=== PATIENT | male | born 1935 | race Caucasian/White ===

== ENCOUNTER 2017-01-20 22:56 | Observation (INO) | payer OTHER ==
[2017-01-20] MEDS ORDERED: NS 1,000 ML IV ONE (23:06)
[2017-01-20] MEDS ORDERED: ceFAZolin 3 GM in D5W 100 ML IV ONE (23:07)
--- NOTE | 2017-01-20 23:11 | EDPHY ---
H & P HPI/ROS: HPI CHIEF COMPLAINT: Large laceration to right leg HISTORY OF PRESENT ILLNESS: This patient very pleasant 81-year-old male significant past medical history for AFib on Pradaxa, pacemaker, depression, hyperlipidemia and GERD he presents emergency room after he had multiple glasses of wine this evening he slipped and fell on hardwood floor with his right leg extending through a glass cabinet. He sustained a rather large posterior right leg wound. EMS evaluated him. At that time they did place a tourniquet on his right upper thigh for possible arterial bleed however this was only in place for 10 minutes. They took it down prior to arrival to the emergency room. Upon arrival to the emergency room the patient is hemodynamically stable no acute distress. Has a large laceration to the posterior right calf. Venous bleeding. The laceration is deep into the muscle belly, 12 cm x 5 cm. Patient distally neurovascular intact with warm extremity warm foot good cap refill. Good DP. Past Medical History: AFib, pacemaker, cardiac ablation, GERD, depression, hyperlipidemia Past Surgical History: Left chest pacemaker, cardiac ablation Social History: Had alcohol this evening, denies illicit drugs or tobacco. Family History: Noncontributory ROS REVIEW OF SYSTEMS: A comprehensive 10 point review of systems is otherwise negative aside from elements mentioned in the history of present illness. Exam Constitutional triage nursing summary reviewed, vital signs reviewed, awake/ alert. Eyes normal conjunctivae and sclera, EOMI, PERRLA. HENT normal inspection, atraumatic, moist mucus membranes, no epistaxis, neck supple/ no meningismus, no raccoon eyes. Respiratory clear to auscultation bilaterally, normal breath sounds, no respiratory distress, no wheezing. Cardiovascular rate normal, regular rhythm, no murmur, no edema, distal pulses normal. Gastrointestinal soft, non-tender, no rebound, no guarding, normal bowel sounds, no distension, no pulsatile mass. Genitourinary no CVA tenderness. Musculoskeletal no midline vertebral tenderness, full range of motion, no calf swelling, no tenderness of extremities, no meningismus, good pulses, neurovascularly intact. Skin pink, warm, & dry, no rash, skin atraumatic. Neurologic RLE: Neurovascularly intact. Good cap refill. Good distal pulse. Warm extremity. No cyanosis. Neurovascularly intact. Good flexion and extension of the ankle and foot. The posterior calf exam there is a large laceration deep into the muscle belly, 12 cm x 5 cm. No foreign bodies visualized. awake, alert and oriented x 3, AAOx3, moves all 4 extremities equally, motor intact, sensory intact, CN II-XII intact, normal cerebellar, normal vision, normal speech. Psychiatric normal mood/affect. Heme/Lymph/Immune no lymphadenopathy. Differential Diagnosis: Includes but is not limited to in a particular order rather large lower extremity laceration, soft tissue injury, degloving injury, laceration of calf muscle including gastrocnemius, possible tendon injury, possible arterial injury Medical Decision Making: Plan for this patient x-ray right lower extremity, 2 large-bore IVs, type and screen, check coags, 1 g Ancef. Consult Trauma surgery Dr. AYANA Singh. Re-evaluation: 1211AM: Patient remains hemodynamically stable no significant bleeding from the calf this time. Dr. Singh with Trauma surgery has been consulted. Plan is to take this patient to the operating room for washout and closure of this large right leg defect. IV antibiotics have been ordered Ancef, also T x-ray has been ordered. He is on Pradaxa there is a reversal agent called Praxibind. At this time I will talk to Dr. Singh about giving him this medication however given that he is not hemorrhaging and he is completely stable we will not reverse his Pradaxa at this time. His last dose was earlier this morning. Will obviously hold his dose tonight. Patient remained stable plan to go to the operating room. Family updated. Patient updated. Leg is still warm, neurovascular intact. 0106AM: Patient remains hemodynamically stable no active bleeding. Reexamine his leg it stool warm good pulse good cap refill. Source: Patient, EMS - Personal History Tetanus Vaccine Date: 2006 - Medical/Surgical History Hx Asthma: Yes Hx Chronic Respiratory Disease: No Hx Diabetes: No Hx Cardiac Disease: Yes Hx Renal Disease: No Hx Cirrhosis: No Hx Alcoholism: Yes Hx HIV/AIDS: No Hx Splenectomy or Spleen Trauma: No Other PMH: Afib, multiple orthopedic surgeries, HTN., seasonal depression, staph infection (under tx), - Social History Smoking Status: Former smoker Constitutional: Initial Vital Signs Temperature (C) 36.3 C 01/20/17 23:15 Heart Rate 76 01/20/17 23:15 Respiratory Rate 20 01/20/17 23:15 Blood Pressure 101/65 01/20/17 23:15 O2 Sat (%) 91 L 01/20/17 23:15 O2 Delivery Mode Room Air Allergies/Adverse Reactions: morphine Allergy (Unknown, Verified 04/28/15 10:53) gabapentin Allergy (Verified 12/26/15 14:23) oxycodone Allergy (Verified 12/26/15 14:23) CAT DANDER Allergy (Severe, Uncoded 08/09/09 12:59) RASH, SWOLLEN ESOPHOGUS,SOB FEATHERS Allergy (Severe, Uncoded 08/09/09 12:59) RASH SWOLLEN ESOPHOGUS, SOB Home Medications: Medication Instructions Recorded Atorvastatin Calcium [Lipitor 40 40 mg PO HS 04/18/15 mg (*)] Dabigatran Etexilate Mesyl 150 mg PO BID 04/18/15 [Pradaxa 150 MG (*)] LORazepam [Ativan (*)] 1 mg PO HS PRN 04/18/15 Lisinopril [Zestril 10 mg (*)] 10 mg PO DAILY 04/18/15 Naproxen Sodium [ANAPROX DS] 550 mg PO BID PRN 04/18/15 Omeprazole Magnesium [Prilosec Otc] 20 mg PO DAILY 04/18/15 Sertraline HCl [Zoloft 100mg (*)] 150 mg PO DAILY 04/18/15 Cephalexin [Keflex (*)] 500 mg PO Q6H #28 cap 01/21/17 Digoxin [Lanoxin 125 mcg (RX)] 125 mcg PO DAILY10 01/21/17 Diltiazem Cd [Cardizem ER Q24hr] 360 mg PO DAILY 01/21/17 Docusate Sodium [Colace 100 MG (*)] 100 mg PO BID #0 cap 01/21/17 Dofetilide [Tikosyn 0.5 MG (*)] 0.5 mg PO BID 01/21/17 Furosemide [Lasix 20 MG (*)] 20 mg PO DAILY 01/21/17 Hydrocodone/APAP 5/325 [[place] 1 - 2 tab PO Q4H PRN #30 tab 01/21/17 5/325 (*)] Potassium Cl [Klor-Con 20 meq (*)] 20 meq PO DAILY 01/21/17 Tamsulosin HCl [Flomax 0.4 MG (*)] 0.4 mg PO DAILY 01/21/17 buPROPion SR [Wellbutrin 100mg SR 50 mg PO DAILY 01/21/17 (*)] Medical Decision Making - Data Points Laboratory Results: Laboratory Results 01/20/17 23:30 01/20/17 23:30 Medications Given: Discontinued Medications Bacitracin (Bacitracin Ointment Tube) Confirm Administered Dose 14.2 manav TP .STK -MED ONE Stop: 01/21/17 03:40 Last Admin: 01/21/17 04:59 Dose: Not Given Bupivacaine HCl (Sensorcaine 0.5% Vial) Confirm Administered Dose 30 ml .ROUTE .STK-MED ONE Stop: 01/21/17 03:40 Last Admin: 01/21/17 04:59 Dose: Not Given Cefazolin Sodium (Ancef) Confirm Administered Dose 1 gm .ROUTE .STK-MED ONE Stop: 01/21/17 04:22 Last Admin: 01/21/17 04:41 Dose: 1 gm Cefazolin Sodium (Ancef) Confirm Administered Dose 1 gm .ROUTE .STK-MED ONE Stop: 01/21/17 04:22 Last Admin: 01/21/17 04:41 Dose: 1 gm Docusate Sodium (Colace) 100 mg PO BID LOIS Stop: 07/20/17 12:44 Last Admin: 01/21/17 13:25 Dose: 100 mg Fentanyl (Sublimaze) 25 - 50 mcg IVP Q5M PRN PRN Reason: PACU, Immediate Moderate Pain Stop: 01/21/17 06:04 Last Admin: 01/21/17 05:23 Dose: 50 mcg Hydromorphone HCl (Dilaudid) 0.2 - 0.4 mg IVP Q4 PRN PRN Reason: Pain, Severe Unable to Take PO Stop: 01/31/17 05:22 Last Admin: 01/21/17 11:01 Dose: 0.2 mg Sodium Chloride (Ns) 1,000 mls @ 0 mls/hr IV ONCE ONE; Wide Open PRN Reason: Protocol Stop: 01/20/17 23:07 Last Admin: 01/20/17 23:29 Dose: 1,000 mls Cefazolin Sodium 3 gm/ (Dextrose) 100 mls @ 200 mls/hr IV EDNOW ONE PRN Reason: Protocol Stop: 01/20/17 23:36 Last Admin: 01/20/17 23:54 Dose: 100 mls Tranexamic Acid 1,000 mg/ (Sodium Chloride) 110 mls @ 660 mls/hr IV EDNOW ONE Stop: 01/21/17 00:12 Last Admin: 01/21/17 00:50 Dose: 110 mls Cefazolin Sodium/Dextrose (Ancef 1 Gm (Premix)) 50 mls @ 200 mls/hr IV Q8 LOIS PRN Reason: Protocol Stop: 01/21/17 22:14 Last Admin: 01/21/17 13:03 Dose: 50 mls Potassium Chloride/Dextrose/Sod Cl (D5w 1/2 Ns W/ 20 Kcl/L) 1,000 mls @ 75 mls/ hr IV CONT LOIS Stop: 07/20/17 05:29 Last Admin: 01/21/17 06:12 Dose: 1,000 mls Polyethylene Glycol (Miralax) 17 gm PO ONCE ONE Stop: 01/21/17 12:32 Last Admin: 01/21/17 13:03 Dose: 17 gm Thrombin (Thrombin-Jmi) Confirm Administered Dose 20,000 unit TP .STK-MED ONE Stop: 01/21/17 04:23 Last Admin: 01/21/17 04:40 Dose: 20,000 unit Departure - Departure Disposition: [facility] Inpatient Acute Clinical Impression: Laceration of calf Qualifiers: Encounter type: initial encounter Laterality: right Qualified Code(s): S81.811A - Laceration without foreign body, right lower leg, initial encounter Condition: Good
[2017-01-20 23:39] LABS: % IMMATURE GRANULYOCYTES 0.3 % (0.0-1.1); ABSOLUTE IMMATURE GRANULOCYTES 0.02 10^3/uL (0.00-0.10); ADD DIFF? NO; ADD MORPH? NO; ADD SCAN? NO; ATYPICAL LYMPHOCYTE FLAG 20 (0-99); FRAGMENT RBC FLAG 0 (0-99); HEMATOCRIT 38.4 % (40.0-51.0); HEMOGLOBIN 12.9 g/dL (13.7-17.5); LEFT SHIFT FLG 0 (0-99); LIPEMIA HEMOLYSIS FLAG 80 (0-99); MEAN CELL HEMOGLOBIN 35.1 pg (27.9-34.1); MEAN CELL HEMOGLOBIN CONCENTR. 33.6 g/dL (32.4-36.7); MEAN CELL VOLUME 104.3 fL (81.5-99.8); MEAN PLATELET VOLUME 9.2 fL (8.7-11.7); PLATELET CLUMPS FLAG 0 (0-99); PLATELET COUNT 182 10^3/uL (150-400); RED BLOOD CELL COUNT 3.68 10^6/uL (4.40-6.38); RED CELL DISTRIBUTION WIDTH 12.7 % (11.5-15.2)
[2017-01-20 23:49] LABS: APTT 31.4 SEC (23.0-38.0); INR 1.15 (0.83-1.16); PROTIME(PATIENT) 14.7 SEC (12.0-15.0)
[2017-01-20 23:53] LABS: ANION GAP 14 mEq/L (8-16); CALCIUM 9.1 mg/dL (8.5-10.4); CARBON DIOXIDE 20 mEq/l (22-31); CHLORIDE 105 mEq/L (97-110); CREATININE 0.8 mg/dL (0.7-1.3); GLOMERULAR FILTRATION RATE > 60; GLUCOSE 84 mg/dL (70-100); POTASSIUM 4.4 mEq/L (3.5-5.2); SODIUM 139 mEq/L (134-144)
[2017-01-21] MEDS ORDERED: TRANEXAMIC ACID 1,000 MG in NS 100 ML IV ONE (00:03)
[2017-01-21 01:47] LABS: % IMMATURE GRANULYOCYTES 0.2 % (0.0-1.1); ABSOLUTE IMMATURE GRANULOCYTES 0.01 10^3/uL (0.00-0.10); ADD DIFF? NO; ADD MORPH? NO; ADD SCAN? NO; ATYPICAL LYMPHOCYTE FLAG 10 (0-99); FRAGMENT RBC FLAG 0 (0-99); HEMATOCRIT 35.7 % (40.0-51.0); HEMOGLOBIN 11.8 g/dL (13.7-17.5); LEFT SHIFT FLG 0 (0-99); LIPEMIA HEMOLYSIS FLAG 80 (0-99); MEAN CELL HEMOGLOBIN 34.2 pg (27.9-34.1); MEAN CELL HEMOGLOBIN CONCENTR. 33.1 g/dL (32.4-36.7); MEAN CELL VOLUME 103.5 fL (81.5-99.8); MEAN PLATELET VOLUME 9.1 fL (8.7-11.7); PLATELET CLUMPS FLAG 0 (0-99); PLATELET COUNT 176 10^3/uL (150-400); RED BLOOD CELL COUNT 3.45 10^6/uL (4.40-6.38); RED CELL DISTRIBUTION WIDTH 12.7 % (11.5-15.2)
--- NOTE | 2017-01-21 02:03 | GHP ---
[f rep st] PREOP HISTORY AND PHYSICAL DATE OF ADMISSION: 01/21/2017 HISTORY OF PRESENTING ILLNESS: This is an 81-year-old male who slipped and his foot went through [facility] pane, sustaining a large laceration on the back of his right calf, down into the gastroc mus bobo. It was bleeding profusely initially. He is on Pradaxa for atrial fibrillation. He was tamiko t in initially with EMS with a tourniquet in place, but he has been quite stable. He is admitted at this time for clean out and repair of his right calf laceration. He also wants us to fix his umbil ical hernia, but I doubt that we will do that tonight, since he is only 15 hours off his Pradaxa. PAST MEDICAL HISTORY: Includes atrial fibrillation, pacemaker placement, cardiac ablation. He has some GERD and hyperlipidemia. He also has some depression. REVIEW OF SYSTEMS: Reveals no other major medical problems on a full 10-point review of systems. H e denies any present cardiac symptoms. SOCIAL HISTORY: He does not smoke. FAMILY HISTORY: Noncontributory. PHYSICAL EXAMINATION: GENERAL: An alert 81-year-old male, in no acute distress. HEENT: No icteru s. No adenopathy. No oral lesions. His pupils are normal. NECK: Supple. No thyromegaly. CHEST : Clear to auscultation and percussion. CARDIAC: Regular rhythm without murmurs. ABDOMEN: Soft and nontender. He has a small reducible umbilical hernia. GENITALIA: Normal. EXTREMITIES: Revea l full range of motion. Full pulses. On the posterior aspect of his right calf, he has a large 15 cm laceration, down into the gastrocnemius muscle, which is bleeding significantly but that is well controlled with a pressure dressing. SKIN: Intact with no major lesions except for the laceration. NEUROLOGIC: Physiologic. IMPRESSION: Significant laceration of the right calf. PLAN: Laceration washout and repair. Risks and options have been fully discussed, and he wishes to proceed. We will need to let the Pradaxa wear off a little bit longer, but he has not had any Prad axa for 16 hours. /[id number]/MODL
--- NOTE | 2017-01-21 03:34 | PDANEPAE ---
ANE History of Present Illness 81 yo M here with laceration to R leg for I+D and wound closure ANE Past Medical History - Cardiovascular History Hx Hypertension: Yes Hx Arrhythmias: Yes Hx CHF / Valvular Disease: Yes - Pulmonary History Hx Oxygen in Use at Home: Yes O2 in Use at Home (L/minute): 2 Hx Sleep Apnea: Yes - Endocrine History Hx Diabetes: No - Chronic Pain History Chronic Pain: No ANE Review of Systems - Exercise capacity Exercise capacity: >=4 METS ANE Patient History - Allergies Allergies/Adverse Reactions: morphine Allergy (Unknown, Verified 04/28/15 10:53) gabapentin Allergy (Verified 12/26/15 14:23) oxycodone Allergy (Verified 12/26/15 14:23) CAT DANDER Allergy (Severe, Uncoded 08/09/09 12:59) RASH, SWOLLEN ESOPHOGUS,SOB FEATHERS Allergy (Severe, Uncoded 08/09/09 12:59) RASH SWOLLEN ESOPHOGUS, SOB - Home Medications Home medications: home medication list seen and reviewed Home Medications: Atorvastatin Calcium [Lipitor 40 mg (*)] 40 mg PO DAILY 04/18/15 [Last Taken Unknown] Dabigatran Etexilate Mesyl [Pradaxa 150 MG (*)] 150 mg PO BID 04/18/15 [Last Taken Unknown] Diltiazem HCl [Diltiazem ER] 240 mg PO DAILY 04/18/15 [Last Taken Unknown] Dofetilide [Tikosyn] 500 mcg PO BID 04/18/15 [Last Taken 04/18/15] LORazepam [Ativan (*)] 1 mg PO HS PRN 04/18/15 [Last Taken Unknown] Lisinopril [Zestril 10 mg (*)] 10 mg PO DAILY 04/18/15 [Last Taken Unknown] Naproxen Sodium [ANAPROX DS] 550 mg PO BID 04/18/15 [Last Taken Unknown] Omeprazole Magnesium [Prilosec Otc] 20 mg PO DAILY 04/18/15 [Last Taken Unknown] Sertraline HCl [Zoloft 100mg (*)] 100 mg PO DAILY 04/18/15 [Last Taken Unknown] Tamsulosin HCl 0.4 mg PO DAILY 04/18/15 [Last Taken Unknown] Zaleplon [Sonata] 10 mg PO HS 04/18/15 [Last Taken Unknown] Acyclovir [Zovirax 400 mg (RX)] 400 mg PO BID 04/28/15 [Last Taken Unknown] Digoxin 12/26/15 [Last Taken Unknown] Furosemide [Lasix] 12/26/15 [Last Taken Unknown] Warfarin Sodium [Coumadin] 12/26/15 [Last Taken Unknown] - NPO status NPO Status: no food or drink >8 hours NPO Since - Liquids (Date): 01/20/17 NPO Since - Liquids (Time): 19:00 NPO Since - Solids (Date): 01/20/17 NPO Since - Solids (Time): 19:00 - Anes Hx Anes Hx: no prior problems - Smoking Hx Smoking Status: Former smoker - Alcohol Use Alcohol Use: Heavy - Family Anes Hx Family Anes Hx: none ANE Labs/Vital Signs - Labs Result Diagrams: 01/21/17 01:40 01/20/17 23:30 - Vital Signs Blood Pressure: 110/64 Heart Rate: 68 Respiratory Rate: 16 O2 Sat (%): 96 Height: 172.72 cm Weight: 72.575 kg ANE Physical Exam - Airway Neck exam: FROM, increased neck circumference, short neck Mallampati Score: Class 2 Mouth exam: normal dental/mouth exam - Pulmonary Pulmonary: no respiratory distress, clear to auscultation - Cardiovascular Cardiovascular: regular rate and rhythym, no murmur, rub, or gallop - ASA Status ASA Status: III, E ANE Anesthesia Plan Anesthesia Plan: general endotracheal anesthesia
[2017-01-21] MEDS ORDERED: BUPIVACAINE 0.5% 30 ML SDV ONE (03:39)
[2017-01-21] MEDS ORDERED: BACITRACIN ZINC 14.2 GM OINTTUBE TP ONE (03:39)
[2017-01-21] MEDS ORDERED: fentaNYL 100 MCG/2 ML INJ ONE ×2 (03:40→05:05)
[2017-01-21] MEDS ORDERED: PROPOFOL 200 MG/20 ML VIAL ONE ×2 (03:41)
[2017-01-21] MEDS ORDERED: ROCURONIUM 50 MG/5 ML VIAL ONE (03:43)
[2017-01-21] MEDS ORDERED: LIDOCAINE 2% 100 MG/5 ML SYR ONE (03:43)
[2017-01-21] MEDS ORDERED: epHEDrine SULFATE 10 MG/ML SYR ONE (04:17)
[2017-01-21] MEDS ORDERED: ceFAZolin 1 GM VIAL ONE ×2 (04:21)
[2017-01-21] MEDS ORDERED: THROMBIN (BOVINE) 20,000 UNIT SPRAY TP ONE (04:22)
--- NOTE | 2017-01-21 04:52 | SOAPPROG ---
SOAP Progress Note Assessment/Plan: Assessment: hct 35/ coags ok/ still bleeding risks and options fully discussed Plan:to OR for debridement and repair 01/21/17 04:51 Objective: Vital Signs Temp Pulse Resp BP Pulse Ox 36.4 C 68 16 110/64 96 01/21/17 02:40 01/21/17 03:36 01/21/17 03:36 01/21/17 03:36 01/21/17 03:36 Laboratory Results 01/21/17 01:40 01/19/17 01/20/17 01/21/17 05:59 05:59 05:59 Intake Total 1000 Balance 1000 PT 14.7 SEC (12.0-15.0) 01/20/17 23:30 INR 1.15 (0.83-1.16) 01/20/17 23:30 ICD10 Worksheet Patient Problems: Problems Problem Status Onset Laceration of calf Acute Atrial fibrillation, rapid Acute Bursitis Acute Cellulitis Acute Hypertension Acute [place]OR[place] on CPAP Acute Pulmonary hypertension Acute SSS (sick sinus syndrome) Acute Symptomatic bradycardia Acute
--- NOTE | 2017-01-21 04:55 | POSTOPPROG ---
Post Op Note Date of Operation: 01/21/17 Surgeon: Frankie Singh Anesthesiologist: vera Anesthesia: GET(General Endotracheal) Pre-op Diagnosis: rt calf deep laceration Post-op Diagnosis: same Indication: bleeding, open wound Procedure: wound debridement and repair of lacerated gastroc and soleus muscles , ligat Findings: deep lac down to bone thru gastrocnemius and soleus Inf/Abcess present in the surg proc area at time of surgery?: No Depth: Deep Incisional (Fascial) EBL: Minimal Complications: none
[2017-01-21] MEDS ORDERED: HYDROmorphONE/DILAUDID 1 MG/ML SYR IVP PRN (05:04)
[2017-01-21] MEDS ORDERED: ONDANSETRON 4 MG/2 ML VIAL IVP PRN ×2 (05:04→05:23)
[2017-01-21] MEDS ORDERED: NALOXONE HCL 0.4 MG/ML INJ IVP PRN (05:04)
--- NOTE | 2017-01-21 05:06 | POSTANESTH ---
Post Anesthetic Evaluation Cardiovascular Status: Normal, Stable, Similar to Pre-Op Cond Respiratory Status: Normal, Stable, Similar to Pre-op Cond. Level of Consciousness/Mental Status: Can Participate in Eval, Mildly Sleepy, Arousable Pain Control: Adequate, Prn Tx Ordered Nausea/Vomiting Control: Adequate, Prn Tx Ordered Complications Possibly Related to Anesthesia: None Noted
[2017-01-21] MEDS: fentaNYL 100 MCG/2 ML INJ IVP PRN ×2 (05:08→05:23)
[2017-01-21] MEDS ORDERED: OXYCODONE/APAP 5/325 TAB PO PRN (05:23)
[2017-01-21] MEDS ORDERED: D5W 1/2 NS W/ 20 KCl/L 1,000 ML IV SCH (05:30)
[2017-01-21] MEDS: HYDROmorphONE/DILAUDID 1 MG/ML SYR IVP PRN ×2 (06:13→11:01)
[2017-01-21 08:46] LABS: % IMMATURE GRANULYOCYTES 0.6 % (0.0-1.1); ABSOLUTE IMMATURE GRANULOCYTES 0.08 10^3/uL (0.00-0.10); ADD DIFF? NO; ADD MORPH? NO; ADD SCAN? NO; ATYPICAL LYMPHOCYTE FLAG 0 (0-99); FRAGMENT RBC FLAG 0 (0-99); HEMOGLOBIN 11.7 g/dL (13.7-17.5); LEFT SHIFT FLG 10 (0-99); LIPEMIA HEMOLYSIS FLAG 80 (0-99); MEAN CELL HEMOGLOBIN 34.6 pg (27.9-34.1); MEAN CELL HEMOGLOBIN CONCENTR. 33.4 g/dL (32.4-36.7); MEAN CELL VOLUME 103.6 fL (81.5-99.8); MEAN PLATELET VOLUME 9.2 fL (8.7-11.7); PLATELET CLUMPS FLAG 0 (0-99); PLATELET COUNT 175 10^3/uL (150-400); RED BLOOD CELL COUNT 3.38 10^6/uL (4.40-6.38); RED CELL DISTRIBUTION WIDTH 12.8 % (11.5-15.2)
[2017-01-21 12:02] VITALS: BP 126/74; PULSE 83; RESP 17; TEMP 98; O2SAT 97
[2017-01-21] MEDS ORDERED: POLYETHYLENE GLYCOL 3350 17 GM PKT PO ONE (12:31)
[2017-01-21] MEDS ORDERED: DOCUSATE SODIUM 100 MG CAP PO SCH (12:45)
--- NOTE | 2017-02-10 07:11 | GOP ---
[f rep st] OPERATIVE REPORT DATE OF OPERATION: 01/21/2017 SURGEON: Frankie Singh MD INDUSTRIAL STAFF NURSE: None. ANESTHESIOLOGIST: Dr. Villatoro. PREOPERATIVE DIAGNOSIS: Right calf deep laceration. POSTOPERATIVE DIAGNOSIS: Right calf deep laceration. PROCEDURE PERFORMED: Wound debridement and repair of lacerated gastrocnemius and soleus muscles with ligation of muscular bleeders. FINDINGS: Patient was found to have a deep laceration of the posterior right calf down to the bone through the gastrocnemius and soleus muscle. DESCRIPTION OF PROCEDURE: The patient was taken to the operating room where he received satisfactory general endotracheal anesthesia by Dr. Villatoro, placed in the prone position, prepped and draped in usual sterile fashion. Laceration involved was debrided sharply. Hemostasis was obtained with electrocautery. A 3-0 Vicryl suture ligature was used for bleeding muscular branch of the posterior tibial artery. The soleus muscles approximated with interrupted 0 Vicryl sutures. The gastroc muscles approximated with interrupted 0 PDS sutures. The wound was irrigated. The subcu was then closed with a running 2- 0 Vicryl suture, the skin with skin srinivas. The wound was dressed with a bulky dressing and Oneil wrap. He tolerated the procedure well. The wound was infiltrated with 0.5% Marcaine. He was taken to the recovery room in good condition. There were no complications. /[id number]/MODL MTDD
== END 2017-01-21 14:43 | disposition home or self-care (01) ==
LOC: EDUNIT# → INTOOBSV 01-21 00:06 → F1N 01-21 01:29
PROVIDERS: ADMIT Surgery; ATTEND Surgery
PROC: 0KQS0ZZ Repair Right Lower Leg Muscle, Open Approach (ICD-10-PCS; principal; 2017-01-21 03:54)
CPT/HCPCS: 13121; 13122; 20103; 73590; 96365; 96374; 96375; 97162; 97166; 99285; G0378; G8978; G8979; G8987; G8988; J0690; J1170; J2001; J2704; J3010

== ENCOUNTER 2017-03-05 05:38 | Day surgery (SDC) | payer OTHER ==
--- NOTE | 2017-03-04 14:13 | GHP ---
[f rep st] PREOP HISTORY AND PHYSICAL DATE OF ADMISSION: 03/05/2017 CHIEF COMPLAINT: 1. Umbilical hernia. 2. Followup status post wound debridement of right lacerated gastrocnemius and soleus muscle on 01/21/2017. HISTORY OF PRESENT ILLNESS: The patient is an 81-year-old male who underwent wound debridement and repair of the lacerated gastrocnemius and soleus muscles of the right calf on 01/21/2017 after falling into a china cabinet while taking Pradaxa. Physical exam was normal during postoperative visit on 01/27/2017, except for some mild serosanguineous drainage from the site, which has resolved at this time. He has no other complaints related to his right calf wound. The patient wonders if he may have a repair of an umbilical hernia that Dr. Singh noticed on physical exam while he was in the hospital for his leg. He states he has a past surgical history that is significant for an inguinal hernia repair, and for trouble with urinary catheters. PAST MEDICAL HISTORY: Allergic rhinitis, arthritis, atrial fibrillation, cardiomyopathy, cataract, congestive heart failure, depression, fall risk, hyperlipidemia, hypertension, pulmonary hypertension, septic arthritis at the right knee, septic bursitis at the elbow, shingles, sick sinus syndrome. PAST SURGICAL HISTORY: Cardiac ablation, cataract, excision of left olecranon bursa, inguinal hernia repair, knee replacement, pacemaker placement, uvulectomy. MEDICATIONS: Digoxin, diltiazem, Lasix, Lipitor, lisinopril, lorazepam, multivitamin, naproxen, omeprazole, Pradaxa, tamsulosin, trazodone, Tylenol, Wellbutrin, Zoloft. ALLERGIES: Oxycodone, unknown reaction. FAMILY MEDICAL HISTORY: Hypertension, prostate cancer. SOCIAL HISTORY: The patient is former tobacco smoker. He does not use alcohol. PHYSICAL EXAMINATION: GENERAL: Well-groomed, pleasant, nontoxic-appearing male. SKIN: Warm and dry. RESPIRATORY: No increased work of breathing. ABDOMEN: Positive findings include a palpable, small, soft, reducible umbilical hernia defect, positive, small, soft, reducible ventral hernia defect 2 cm superior in left umbilicus. Otherwise, negative for distention, tenderness , rigidity, guarding. EXTREMITIES: Adequate peripheral perfusion, negative for peripheral edema. Right lower extremity debridement and muscle laceration repair. Wound is healing well, closed completely without evidence, including no signs or symptoms of infection. MUSCULOSKELETAL: Ambulates well independently, normal gait. Full range of motion in right lower extremity, 5/5 strength in the right lower extremity. NEURO: Alert, oriented. PSYCH: Mood and affect are normal. ASSESSMENT: Ventral hernia, umbilical hernia, status post right calf wound debridement and muscle repair. PLAN: Patient's right lower extremity wound is healing well without evidence of deep nerve damage. It was explained to him that the superficial sensory nerve damage would resolve in this part in about 6 months' time, but may never fully resolve. In regard to his chief complaint of hernias, patient was advised that he has 2 abdominal hernias, 1 in his umbilicus, and the other just appearing left. I explained to him both are small, and since they are not symptomatic he should have them repaired at his convenience. We discussed the usual course of their repairs, including option for general anesthesia versus sedation with local, the general course of recovery, and the associated risks, including bleeding, infection, and recurrence of the hernia. I explained the indications for the use of mesh, and the benefits as indicated, as well as the benefit of having the repair under general anesthesia. Patient understood all the above, and wished to proceed with the scheduling of an open repair with possible mesh placement under general anesthesia. /[id number]/MODL MTDD
[2017-03-05] MEDS ORDERED: ceFAZolin 2 GM/DEXTROSE 100 ML IV ONE (06:17)
[2017-03-05] MEDS ORDERED: LIDOCAINE 1% 2 ML INJ ID PRN (06:18)
[2017-03-05] MEDS ORDERED: LR 1,000 ML IV ONE (06:18)
[2017-03-05 06:29] VITALS: RESP 16
--- NOTE | 2017-03-05 06:59 | PDANEPAE ---
ANE History of Present Illness here for umbilical hernia repair ANE Past Medical History - Cardiovascular History Hx Hypertension: Yes Hx Arrhythmias: Yes Hx Chest Pain: No Hx Coronary Artery / Peripheral Vascular Disease: No Hx CHF / Valvular Disease: Yes Hx Palpitations: No - Pulmonary History Hx COPD: No Hx Asthma/Reactive Airway Disease: No Hx Recent Upper Respiratory Infection: Yes Hx Oxygen in Use at Home: Yes O2 in Use at Home (L/minute): 4 L Hx Sleep Apnea: Yes Sleep Apnea Screening Result - Last Documented: Positive Pulmonary History Comment: Has concentrator at [facility] where he has signficant SOB. Does not use O2 in [place] - Neurologic History Hx Cerebrovascular Accident: No Hx Seizures: No Hx Dementia: No - Endocrine History Hx Diabetes: No Hypothyroid: No Hyperthyroid: No - Renal History Hx Renal Disorders: Yes - Liver History Hx Hepatic Disorders: No - Neurological & Psychiatric Hx Hx Neurological and Psychiatric Disorders: No - Cancer History Hx Cancer: No - Congenital Disorder History Hx Congenital Disorders: No - GI History Hx Gastrointestinal Disorders: No - Other Health History Other Health History: Carpal tunnel right - Chronic Pain History Chronic Pain: No - Surgical History Prior Surgeries: Cardiac Ablation 2017. I& D abcess right arm ANE Review of Systems Review of Systems: - Exercise capacity Exercise capacity: >=4 METS METS (RN): 4 METS - Pacemaker Pacemaker Congressional Assistant: [employer] Pacemaker Model: GASTON RDZ seratrox s45 Date Pacemaker Last Checked: 02/25/17 ANE Patient History - Allergies Allergies/Adverse Reactions: oxycodone Allergy (Verified 03/05/17 06:20) nausea CAT DANDER Allergy (Severe, Uncoded 08/09/09 12:59) RASH, SWOLLEN ESOPHOGUS,SOB FEATHERS Allergy (Severe, Uncoded 08/09/09 12:59) RASH SWOLLEN ESOPHOGUS, SOB - Home Medications Home medications: home medication list seen and reviewed Home Medications: Atorvastatin Calcium [Lipitor 40 mg (*)] 40 mg PO HS 04/18/15 [Last Taken 18:00] Dabigatran Etexilate Mesyl [Pradaxa 150 MG (*)] 150 mg PO BID 04/18/15 [Last Taken 02/22/17] LORazepam [Ativan (*)] 1 mg PO HS PRN 04/18/15 [Last Taken 03/04/17 22:00] Lisinopril [Zestril 10 mg (*)] 10 mg PO DAILY AT 6PM 04/18/15 [Last Taken 18:00] Naproxen Sodium [ANAPROX DS] 550 mg PO BID PRN 04/18/15 [Last Taken 02/22/17] Omeprazole Magnesium [Prilosec Otc] 20 mg PO DAILY AT 6AM 04/18/15 [Last Taken 03/05/17 05:10] Sertraline HCl [Zoloft 100mg (*)] 150 mg PO DAILY AT 10AM 04/18/15 [Last Taken 03/04/17 10:00] Digoxin [Lanoxin 125 mcg (RX)] 125 mcg PO DAILY10 01/21/17 [Last Taken 03/05/17 05:10] Diltiazem Cd [Cardizem ER Q24hr] 360 mg PO DAILY06 01/21/17 [Last Taken 05:10] Furosemide [Lasix 20 MG (*)] 20 mg PO MWF 01/21/17 [Last Taken 03/02/17] Potassium Cl [Klor-Con 20 meq (*)] 20 meq PO DAILY 01/21/17 [Last Taken 07:00] Tamsulosin HCl [Flomax 0.4 MG (*)] 0.4 mg PO DAILY AT 10AM 01/21/17 [Last Taken 03/04/17 10:00] buPROPion SR [Wellbutrin 100mg SR (*)] 50 mg PO DAILY 01/21/17 [Last Taken 03/04 18:00] - NPO status NPO Status: no food or drink >8 hours NPO Since - Liquids (Date): 03/04/17 NPO Since - Liquids (Time): 22:00 NPO Since - Solids (Date): 03/04/17 NPO Since - Solids (Time): 18:00 - Smoking Hx Smoking Status: Former smoker - Family Anes Hx Family Hx Anesthesia Complications: none ANE Labs/Vital Signs - Vital Signs Blood Pressure: 135/85 Heart Rate: 70 Respiratory Rate: 16 O2 Sat (%): 95 Height: 172.72 cm Weight: 74.389 kg ANE Physical Exam - Airway Neck exam: FROM Mallampati Score: Class 1 Mouth exam: normal dental/mouth exam - Pulmonary Pulmonary: no respiratory distress - Cardiovascular Cardiovascular: regular rate and rhythym - ASA Status ASA Status: II ANE Anesthesia Plan Anesthesia Plan: general endotracheal anesthesia
--- NOTE | 2017-03-05 07:06 | PDHPUP ---
History & Physical Update H&P update statement: This history and physical update is based on an assessment of the patient which was completed after admission or registration (within 24 hours), but prior to the surgery/procedure. H&P update: H&P reviewed & patient examined, no change in patient's condition since H&P completed
[2017-03-05] MEDS ORDERED: BUPIVACAINE 0.5% 30 ML SDV ONE (07:07)
[2017-03-05] MEDS ORDERED: fentaNYL 100 MCG/2 ML INJ ONE ×2 (07:09→07:43)
[2017-03-05] MEDS ORDERED: PROPOFOL/EMULSION 500 MG/50 ML BOTTLE IV ONE (07:10)
[2017-03-05] MEDS ORDERED: ONDANSETRON 4 MG/2 ML VIAL IVP PRN ×2 (07:33→07:34)
[2017-03-05] MEDS ORDERED: NALOXONE HCL 0.4 MG/ML INJ IVP PRN ×4 (07:33→09:58)
[2017-03-05] MEDS ORDERED: ALBUTEROL 3 ML DEYVIAL IH PRN ×3 (07:33→09:58)
[2017-03-05] MEDS ORDERED: HYDROCODONE/APAP 5/325 TAB PO PRN ×3 (07:33→09:58)
[2017-03-05] MEDS ORDERED: fentaNYL 100 MCG/2 ML INJ IVP PRN ×3 (07:33→09:58)
[2017-03-05] MEDS ORDERED: DEXAMETHASONE 4 MG/ML VIAL IVP PRN ×2 (07:33→07:34)
[2017-03-05] MEDS ORDERED: HYDROmorphONE/DILAUDID 1 MG/ML INJ IVP PRN (07:34)
[2017-03-05] MEDS ORDERED: PHENYLEPHRINE HCL 100 MCG/ML SYR ONE (08:00)
[2017-03-05] MEDS ORDERED: SUGAMMADEX SODIUM 200 MG/2 ML VIAL IVP ONE (08:00)
--- NOTE | 2017-03-05 08:24 | POSTOPPROG ---
Post Op Note Date of Operation: 03/05/17 Surgeon: Frankie Singh Superintendent Communications: Laila Neal Anesthesiologist: Stefani Anesthesia: GET(General Endotracheal) Pre-op Diagnosis: Incisional umbilical hernia Post-op Diagnosis: same Indication: enlarging hernia Procedure: open incisional hernia repair with mesh Inf/Abcess present in the surg proc area at time of surgery?: No Depth: Deep Incisional (Fascial) EBL: Minimal
[2017-03-05 09:46] VITALS: PULSE 63; TEMP 98.1; O2SAT 93
[2017-03-05] MEDS ORDERED: LR 500 ML IV PRN (09:58)
[2017-03-05 11:40] VITALS: BP 116/63
--- NOTE | 2017-03-05 16:10 | POSTANESTH ---
Post Anesthetic Evaluation Cardiovascular Status: Normal, Stable Respiratory Status: Normal, Stable Level of Consciousness/Mental Status: Can Participate in Eval Pain Control: Adequate, Prn Tx Ordered Nausea/Vomiting Control: Adequate, Prn Tx Ordered Complications Possibly Related to Anesthesia: None Noted
== END 2017-03-05 12:00 | disposition home or self-care (01) ==
LOC: FSGY 05:38
PROVIDERS: ATTEND Surgery
PROC: 0WQF0ZZ Repair Abdominal Wall, Open Approach (ICD-10-PCS; principal; 2017-03-05 07:15)
PROC: 0WUF0JZ Supplement Abdominal Wall with Synthetic Substitute, Open Approach (ICD-10-PCS; principal; 2017-03-05 07:15)
DX: K43.2 Incisional hernia without obstruction or gangrene (principal); K42.9 Umbilical hernia without obstruction or gangrene; I10 Essential (primary) hypertension; Z85.46 Personal history of malignant neoplasm of prostate
CPT/HCPCS: C1781; J0690; J2370; J2704; J3010

== ENCOUNTER 2017-09-08 10:04 | Observation (INO) | payer OTHER ==
[2017-09-08] MEDS ORDERED: BUPIVACAINE 0.5% 30 ML SDV ONE (10:07)
[2017-09-08] MEDS ORDERED: LR 1,000 ML IV ONE (10:34)
[2017-09-08] MEDS ORDERED: LIDOCAINE 1% 2 ML INJ ID PRN (10:34)
[2017-09-08] MEDS ORDERED: ceFAZolin 2 GM/SWFI 2 GM/20 ML SYR IVP ONE (10:34)
--- NOTE | 2017-09-08 11:45 | PDANEPAE ---
ANE History of Present Illness revision of umbilical hernia ANE Past Medical History - Cardiovascular History Hx Hypertension: Yes Hx Arrhythmias: Yes Hx Chest Pain: No Hx Coronary Artery / Peripheral Vascular Disease: No Hx CHF / Valvular Disease: Yes Hx Palpitations: No Cardiovascular History Comment: SSS:Pacemaker. A Fib tx x2 w/ablations. HPL. cardiomyopathy - Pulmonary History Hx COPD: No Hx Asthma/Reactive Airway Disease: No Hx Recent Upper Respiratory Infection: No Hx Oxygen in Use at Home: Yes O2 in Use at Home (L/minute): 3L w/Bipap at night Hx Sleep Apnea: Yes Sleep Apnea Screening Result - Last Documented: Positive Pulmonary History Comment: 4L O2 while at pt's cabin at 7,000[place] in [place]. Patient reports his O2 Sat in the mornings is 89% usually - Neurologic History Hx Cerebrovascular Accident: No Hx Seizures: No Hx Dementia: No - Endocrine History Hx Diabetes: No Hypothyroid: No Hyperthyroid: No Obesity: mild - Renal History Hx Renal Disorders: Yes Renal History Comment: BPH - Liver History Hx Hepatic Disorders: No - Neurological & Psychiatric Hx Hx Neurological and Psychiatric Disorders: Yes Neurological / Psychiatric History Comment: [facility] for occ injections-occ low back pain. Insomnia on QHS ativan - Cancer History Hx Cancer: No - Congenital Disorder History Hx Congenital Disorders: No - GI History GERD: moderate Hx Gastrointestinal Disorders: Yes Gastrointestinal History Comment: acid reflux - Other Health History Other Health History: Ventral hernia. Carpal tunnel right. Staph infection R knee - Chronic Pain History Chronic Pain: No - Surgical History Prior Surgeries: leg laceration -17. Cardiac Ablation 2015. I& D abcess right arm(sepsis). inguinal sx 03-05-17. cataract extractions w/IOL. B TKA. repair of ankle ligament tear. bilat total knees. R knee sx ANE Review of Systems Review of Systems: - Exercise capacity METS (RN): 4 METS - Pacemaker Date Pacemaker Last Checked: 02/25/17 ANE Patient History - Allergies Allergies/Adverse Reactions: oxycodone Allergy (Verified 09/07/17 11:12) nausea CAT DANDER Allergy (Severe, Uncoded 08/09/09 12:59) RASH, SWOLLEN ESOPHOGUS,SOB FEATHERS Allergy (Severe, Uncoded 08/09/09 12:59) RASH SWOLLEN ESOPHOGUS, SOB - Home Medications Home Medications: Atorvastatin Calcium [Lipitor 40 mg (*)] 40 mg PO HS 04/18/15 [Last Taken 22:00] Dabigatran Etexilate Mesyl [Pradaxa 150 MG (*)] 150 mg PO BID 04/18/15 [Last Taken 08/31/17 09:00] LORazepam [Ativan (*)] 1 mg PO HS PRN 04/18/15 [Last Taken 09/07/17 23:00] Lisinopril [Zestril 10 mg (*)] 10 mg PO DAILY AT 6PM 04/18/15 [Last Taken 07:30] Naproxen Sodium [ANAPROX DS] 550 mg PO BID PRN 04/18/15 [Last Taken 09/07/17 10: 00] Omeprazole Magnesium [Prilosec Otc] 20 mg PO DAILY AT 6AM 04/18/15 [Last Taken 09/08/17 07:30] Sertraline HCl [Zoloft 100mg (*)] 150 mg PO DAILY AT 10AM 04/18/15 [Last Taken 09/08/17 07:30] Digoxin [Lanoxin 125 mcg (RX)] 125 mcg PO DAILY10 01/21/17 [Last Taken 09/08/17 07:30] Diltiazem Cd [Cardizem ER Q24hr] 360 mg PO DAILY06 01/21/17 [Last Taken 07:30] Furosemide [Lasix 20 MG (*)] 20 mg PO MWF 01/21/17 [Last Taken 09/07/17 08:00] Potassium Cl [Klor-Con 20 meq (*)] 20 meq PO DAILY 01/21/17 [Last Taken 08:00] Tamsulosin HCl [Flomax 0.4 MG (*)] 0.4 mg PO DAILY AT 10AM 01/21/17 [Last Taken 09/08/17 07:30] buPROPion SR [Wellbutrin 100mg SR (*)] 50 mg PO DAILY 01/21/17 [Last Taken 09/08 07:30] - NPO status NPO Since - Liquids (Date): 09/08/17 NPO Since - Liquids (Time): 07:30 NPO Since - Solids (Date): 09/07/17 NPO Since - Solids (Time): 22:00 - Smoking Hx Smoking Status: Former smoker - Family Anes Hx Family Hx Anesthesia Complications: none ANE Labs/Vital Signs - Labs Result Diagrams: 09/08/17 11:00 - Vital Signs Blood Pressure: 136/82 Heart Rate: 79 Respiratory Rate: 20 O2 Sat (%): 91 Height: 167.64 cm Weight: 74.389 kg ANE Physical Exam - Airway Neck exam: decreased ROM Mallampati Score: Class 3 (<3 FB mouth opening) Mouth exam: normal dental/mouth exam - Pulmonary Pulmonary: clear to auscultation - Cardiovascular Cardiovascular: regular rate and rhythym - ASA Status ASA Status: III ANE Anesthesia Plan Anesthesia Plan: general endotracheal anesthesia
[2017-09-08] MEDS ORDERED: MIDAZOLAM 2 MG/2 ML VIAL IVP ONE (11:50)
[2017-09-08] MEDS ORDERED: PROPOFOL 200 MG/20 ML VIAL ONE (11:55)
[2017-09-08] MEDS ORDERED: fentaNYL 100 MCG/2 ML INJ ONE ×4 (11:55→15:11)
[2017-09-08] MEDS ORDERED: MIDAZOLAM 2 MG/2 ML VIAL ONE (12:05)
[2017-09-08] MEDS ORDERED: PHENYLEPHRINE HCL 100 MCG/ML SYR ONE (12:39)
[2017-09-08] MEDS ORDERED: ONDANSETRON 4 MG/2 ML VIAL ONE (12:51)
[2017-09-08] MEDS ORDERED: ROCURONIUM 50 MG/5 ML VIAL ONE (13:07)
[2017-09-08] MEDS ORDERED: HYDROCODONE/APAP 5/325 TAB PO PRN (13:15)
[2017-09-08] MEDS ORDERED: ONDANSETRON 4 MG/2 ML VIAL IVP PRN ×2 (13:15→13:39)
[2017-09-08] MEDS ORDERED: NALOXONE HCL 0.4 MG/ML INJ IVP PRN (13:15)
[2017-09-08] MEDS ORDERED: THROMBIN (BOVINE) 5,000 UNIT VIAL TP ONE (13:16)
[2017-09-08] MEDS ORDERED: SUGAMMADEX SODIUM 200 MG/2 ML VIAL IVP ONE (13:24)
[2017-09-08] MEDS ORDERED: HYDROmorphone HCL/NS 0.5 MG/ML SYR IVP PRN (13:39)
[2017-09-08] MEDS ORDERED: ACETAMINOPHEN 325 MG TAB PO PRN (13:39)
--- NOTE | 2017-09-08 13:43 | POSTOPPROG ---
Post Op Note Date of Operation: 09/08/17 Surgeon: Frankie Singh Wringer Machine Operator: Jill Mahajan Anesthesiologist: Too Sesay Anesthesia: GET(General Endotracheal) Pre-op Diagnosis: recurrent ventral hernia with open wound, possible infected mesh Post-op Diagnosis: same Procedure: Open VH repair with removal of FB mesh. No new mesh replaced. Findings: recurrent defect Inf/Abcess present in the surg proc area at time of surgery?: Yes Depth: Superfical (Skin SQ) EBL: 25cc Complications: none
[2017-09-08] MEDS: fentaNYL 100 MCG/2 ML INJ IVP PRN ×6 (13:45→15:13)
--- NOTE | 2017-09-08 14:06 | POSTANESTH ---
Post Anesthetic Evaluation Cardiovascular Status: Similar to Pre-Op Cond Respiratory Status: Similar to Pre-op Cond. Level of Consciousness/Mental Status: Can Participate in Eval Pain Control: Adequate, Prn Tx Ordered Nausea/Vomiting Control: Adequate, Prn Tx Ordered Complications Possibly Related to Anesthesia: None Noted
[2017-09-08] MEDS: CEFAZOLIN IV SCH ×2 (16:43→21:27)
[2017-09-08] MEDS: NS IV SCH ×2 (16:43→21:27)
[2017-09-08] MEDS: HYDROCODONE/APAP 5/325 TAB PO PRN ×2 (17:36→23:05)
[2017-09-08] MEDS ORDERED: LORazepam 1 MG TAB PO PRN (18:10)
--- NOTE | 2017-09-08 18:13 | SOAPPROG ---
SOAP Progress Note Assessment/Plan: Assessment/Plan: 81 Y M s/p recurrent ventral hernia repair with removal of old mesh. POD#0. Seen post op while in PACU. AFVSS. Alert, eating. Pain controlled. Continue routine post op care. 09/08/17 18:11 Objective: Vital Signs Temp Pulse Resp BP Pulse Ox 36.5 C 79 16 120/71 96 09/08/17 15:40 09/08/17 12:50 09/08/17 15:40 09/08/17 15:31 09/08/17 15:40 Laboratory Results 09/08/17 11:00 09/07/17 09/08/17 09/09/17 05:59 05:59 05:59 Intake Total 1200 Output Total 5 Balance 1195 ICD10 Worksheet Patient Problems: Problems Problem Status Onset Atrial fibrillation, rapid Acute Bursitis Acute Cellulitis Acute Hypertension Acute Laceration of calf Acute [place] on CPAP Acute Pulmonary hypertension Acute SSS (sick sinus syndrome) Acute Symptomatic bradycardia Acute
[2017-09-08] MEDS ORDERED: ATORVASTATIN CALCIUM 40 MG TAB PO SCH (21:00)
[2017-09-08] MEDS: ASCORBIC ACID 500 MG TAB PO SCH (21:27)
[2017-09-08] MEDS: DOCUSATE SODIUM 100 MG CAP PO SCH (21:28)
[2017-09-09] MEDS: NS IV SCH (05:18)
[2017-09-09] MEDS: CEFAZOLIN IV SCH (05:18)
[2017-09-09] MEDS ORDERED: NON-FORMULARY NEW DRUG (Omeprazole Magnesium [Prilosec Otc] 20 MG) PO SCH (06:00)
[2017-09-09] MEDS ORDERED: PANTOPRAZOLE SODIUM 40 MG TAB PO SCH (06:00)
[2017-09-09] MEDS ORDERED: DILTIAZEM CD 360 MG PO SCH (06:00)
[2017-09-09] MEDS ORDERED: DILTIAZEM CD 180 MG CAP PO SCH (06:00)
[2017-09-09] MEDS ORDERED: FUROSEMIDE 20 MG TAB PO SCH (08:00)
[2017-09-09] MEDS: DOCUSATE SODIUM 100 MG CAP PO SCH (08:21)
[2017-09-09] MEDS: ASCORBIC ACID 500 MG TAB PO SCH (08:22)
--- NOTE | 2017-09-09 08:44 | SOAPPROG ---
SOAP Progress Note Assessment/Plan: Assessment/Plan: 81 Y M s/p recurrent ventral hernia repair with removal of old mesh. POD#1. Doing well. Likely d/c to home later today, after lunch. S: Eating breakfast. Took a pain pill last night. Was able to sleep well. O: alert, nad mmm ctab rrr abd soft, inc cdi, +BS 09/09/17 08:42 Objective: Vital Signs Temp Pulse Resp BP Pulse Ox 36.5 C 62 16 131/83 H 94 09/09/17 07:45 09/09/17 07:45 09/09/17 07:45 09/09/17 07:45 09/09/17 07:45 Laboratory Results 09/09/17 04:31 09/09/17 04:31 09/08/17 09/09/17 09/10/17 05:59 05:59 05:59 Intake Total 1800 Output Total 605 Balance 1195 ICD10 Worksheet Patient Problems: Problems Problem Status Onset Atrial fibrillation, rapid Acute Bursitis Acute Cellulitis Acute Hypertension Acute Laceration of calf Acute [place] on CPAP Acute Pulmonary hypertension Acute SSS (sick sinus syndrome) Acute Symptomatic bradycardia Acute
[2017-09-09] MEDS ORDERED: POTASSIUM CL 20 MEQ TAB PO SCH (09:00)
[2017-09-09] MEDS ORDERED: buPROPion SR 100 MG TAB PO SCH ×2 (09:00)
[2017-09-09] MEDS ORDERED: CHOLECALCIFEROL VIT D3 1,000 UNITS TAB PO SCH (09:00)
[2017-09-09] MEDS ORDERED: DIGOXIN 125 MCG TAB PO SCH (10:00)
[2017-09-09] MEDS ORDERED: TAMSULOSIN HCL 0.4 MG CAP PO SCH (10:00)
[2017-09-09] MEDS ORDERED: SERTRALINE HCL 100 MG TAB PO SCH (10:00)
--- NOTE | 2017-09-09 10:21 | ASMTCMCOM ---
CM Note CM Note Notes: Reviewed chart and discussed w/RN. Pt will dc home w/, no CM needs. Date Signed: 09/09/2017 10:20 AM Electronically Signed By:Nanda Patterson RN
[2017-09-09 12:05] VITALS: BP 131/70
[2017-09-09] MEDS ORDERED: LISINOPRIL 10 MG TAB PO SCH (18:00)
[2017-09-09] MEDS ORDERED: DABIGATRAN ETEXILATE MESYL 150 MG CAP PO SCH (21:00)
[2017-09-10] MEDS ORDERED: DABIGATRAN ETEXILATE MESYL 150 MG CAP PO SCH (09:00)
--- NOTE | 2017-09-12 15:46 | GOP ---
[f rep st] OPERATIVE REPORT DATE OF OPERATION: 09/08/2017 SURGEON: Frankei Singh MD PREOPERATIVE DIAGNOSIS: Foreign body reaction and recurrent ventral hernia. POSTOPERATIVE DIAGNOSIS: Foreign body reaction and recurrent ventral hernia. PROCEDURE PERFORMED: Repair of recurrent ventral hernia with removal of foreign body. FINDINGS: Patient was found to have several 0 Ethibond sutures, which appeared to be infected. He a lso had a piece of mesh underneath the incision that did not appear to be infected, but was removed a nyway, and he had a new recurrent ventral hernia lateral to the mesh. DESCRIPTION OF PROCEDURE: Patient was taken to the operating room where he received satisfactory gen eral endotracheal anesthesia. He was placed in supine position and prepped and draped in the usual s terile fashion. The previous old incision was excised with elliptical incision. Dissection extended through subcutaneous tissue down to some sutures that were encountered. These were freed up and rem ruchi, but did appear to contain some reactive infection around them; no gross purulence. The old mes h repair of his hernia was exposed. The entire mesh was then excised and removed, along with all sut ures that could be identified. The new hernia defect was incorporated in this incision, and all fasc ial edges were freshened and then closed with interrupted #1 PDS [id number] sutures, subcu was c losed with 3-0 Vicryl, and the skin with a 4-0 Monocryl subcuticular stitch. He tolerated the proced ure quite well. He was taken to the recovery room in good condition. There were no complications /[id number]/MODL
--- NOTE | 2017-10-12 22:03 | GDS ---
[f rep st] DISCHARGE SUMMARY DISCHARGE DIAGNOSES: 1. Foreign body reaction. 2. Recurrent ventral hernia. OTHER PERTINENT DIAGNOSES: Please see previous notes. PROCEDURES: Repair of recurrent ventral hernia with removal of foreign body. INTRAOPERATIVE FINDINGS: Patient was found to have several 0 Ethibond sutures, which appeared to be infected. He also had a piece of mesh underneath the incision that did not appear to be infected, bu t was removed, and he had a new ventral hernia lateral to the mesh. CONSULTATIONS: None. SPECIAL TESTS: None. HOSPITAL COURSE: The patient is a very pleasant 81-year-old male very well known to our practice who underwent repair of a recurrent ventral hernia. This was initially repaired in February of 2017. At that time, he had problems with wound healing and drainage and several sutures had been removed du ring small office procedures. He was healing well up until the point where he had a scab along his i ncision, as well as a recurrent hernia. He underwent recurrent ventral hernia repair with removal of foreign bodies. The sutures did appear to be somewhat infected, however, the mesh did not. Still we removed some mesh. We repaired the hernia without event. The procedure was uncomplicated. The patient's postoperative course was relatively uneventful. His pain was controlled. His diet was advanced. DISCHARGE INSTRUCTIONS: Patient was discharged to home in stable condition with plans for outpatient followup. Limitations were discussed. DISCHARGE MEDICATIONS: All home medications were continued. He was also given prescriptions for ora l Keflex, as well as hydrocodone for pain. FOLLOWUP CARE: Outpatient followup was planned. /[id number]/MODL
== END 2017-09-09 14:21 | disposition home or self-care (01) ==
LOC: F3E 10:04 → F1N 15:48
PROVIDERS: ADMIT Surgery; ATTEND Surgery
PROC: 0WPF0JZ Removal of Synthetic Substitute from Abdominal Wall, Open Approach (ICD-10-PCS; principal; 2017-09-08 11:45)
PROC: 0WQF0ZZ Repair Abdominal Wall, Open Approach (ICD-10-PCS; principal; 2017-09-08 11:45)
DX: K43.2 Incisional hernia without obstruction or gangrene (principal); T81.89XA Other complications of procedures, not elsewhere classified, initial encounter; Y84.8 Other medical procedures as the cause of abnormal reaction of the patient, or of later complication, without mention of misadventure at the time of the procedure; Y74.3 Surgical instruments, materials and general hospital and personal-use devices (including sutures) associated with adverse incidents; I48.91 Unspecified atrial fibrillation; I50.9 Heart failure, unspecified; E78.5 Hyperlipidemia, unspecified; I11.9 Hypertensive heart disease without heart failure; Z91.81 History of falling; I49.5 Sick sinus syndrome; Z95.0 Presence of cardiac pacemaker; Z96.659 Presence of unspecified artificial knee joint
CPT/HCPCS: 49585; 88302; J0690; J2250; J2370; J2405; J2704; J3010

== ENCOUNTER 2018-02-05 10:00 | Observation (INO) | payer OTHER ==
[2018-03-12] MEDS ORDERED: FUROSEMIDE 20 MG TAB PO SCH (08:00)
[2018-03-12] MEDS ORDERED: BUPIVACAINE 0.25% 30 ML SDV ONE (08:06)
[2018-03-12] MEDS ORDERED: EPINEPHrine 1 MG/ML INJ ONE (08:06)
[2018-03-12] MEDS ORDERED: LR 1,000 ML IV ONE (08:19)
--- NOTE | 2018-03-12 09:13 | PDHPUP ---
History & Physical Update H&P update statement: This history and physical update is based on an assessment of the patient which was completed after admission or registration (within 24 hours), but prior to the surgery/procedure. H&P update: no change in patient's condition since H&P completed (patient's hernia site marked in pre-op, questions answered)
[2018-03-12] MEDS ORDERED: MIDAZOLAM 2 MG/2 ML VIAL IVP ONE (09:34)
[2018-03-12] MEDS ORDERED: MIDAZOLAM 2 MG/2 ML VIAL ONE (09:34)
--- NOTE | 2018-03-12 09:34 | PDANEPAE ---
ANE History of Present Illness Recurrent ventral hernia ANE Past Medical History - Cardiovascular History Hx Hypertension: Yes Hx Arrhythmias: Yes Hx Chest Pain: No Hx Coronary Artery / Peripheral Vascular Disease: Yes Hx CHF / Valvular Disease: Yes Hx Palpitations: No Cardiovascular History Comment: SSS:Pacemaker. PAROXISMAL A Fib - NO RECENT SXS SINCE 2ND ABLATION. ABLATION X2. HPL. cardiomyopathy - Pulmonary History Hx COPD: No Hx Asthma/Reactive Airway Disease: No Hx Recent Upper Respiratory Infection: No Hx Oxygen in Use at Home: Yes O2 in Use at Home (L/minute): O2 2L NOC Hx Sleep Apnea: Yes Sleep Apnea Screening Result - Last Documented: Positive Pulmonary History Comment: [place] POS W/BIPAP. Patient reports his O2 Sat in the mornings is 89% usually. 4L O2 WHEN IN [place] - Neurologic History Hx Cerebrovascular Accident: No Hx Seizures: No Hx Dementia: No - Endocrine History Hx Diabetes: No - Renal History Hx Renal Disorders: Yes Renal History Comment: BPH. IF CATH REQUIRED USE COUDE 314G PER PT - Liver History Hx Hepatic Disorders: No - Neurological & Psychiatric Hx Hx Neurological and Psychiatric Disorders: Yes Neurological / Psychiatric History Comment: [facility] for occ injections-occ low back pain. Insomnia - Cancer History Hx Cancer: No - Congenital Disorder History Hx Congenital Disorders: No - GI History Hx Gastrointestinal Disorders: Yes Gastrointestinal History Comment: acid reflux - Other Health History Other Health History: Ventral hernia. Carpal tunnel right. Staph infection R knee - Chronic Pain History Chronic Pain: No - Surgical History Prior Surgeries: HERNIA X2 03/01 & 08/2017. L SHOULDER 12/2017. leg laceration . Cardiac Ablation 2016, 2015. I& D abcess right arm(sepsis). inguinal sx . cataract extractions w/IOL. B TKA. repair of ankle ligament tear. bilat total knees. R knee sx ANE Review of Systems Review of Systems: - Exercise capacity METS (RN): 4 METS - Pacemaker Pacemaker Type: Permanent Pacer/Defib Pacemaker [employer] Supervisor: [employer] Date Pacemaker Last Checked: 08/27/2017 ANE Patient History - Allergies Allergies/Adverse Reactions: oxycodone Allergy (Verified 09/07/17 11:12) nausea CAT DANDER Allergy (Severe, Uncoded 08/09/09 12:59) RASH, SWOLLEN ESOPHOGUS,SOB FEATHERS Allergy (Severe, Uncoded 08/09/09 12:59) RASH SWOLLEN ESOPHOGUS, SOB - Home Medications Home medications: home medication list seen and reviewed Home Medications: Atorvastatin Calcium [Lipitor 40 mg (*)] 40 mg PO HS 04/18/15 [Last Taken ] LORazepam [Ativan (*)] 1 mg PO HS PRN 04/18/15 [Last Taken 03/12/18] Lisinopril [Zestril 10 mg (*)] 10 mg PO DAILY AT 6PM 04/18/15 [Last Taken ] Naproxen Sodium [ANAPROX DS] 550 mg PO BID PRN 04/18/15 [Last Taken 03/12/18] Omeprazole Magnesium [Prilosec Otc] 20 mg PO DAILY AT 6AM 04/18/15 [Last Taken 03/12/18] Sertraline HCl [Zoloft 100mg (*)] 150 mg PO DAILY AT 10AM 04/18/15 [Last Taken 03/12/18] Diltiazem Cd [Cardizem ER Q24hr] 360 mg PO DAILY06 01/21/17 [Last Taken 03/12/18 ] Furosemide [Lasix 20 MG (*)] 20 mg PO MWF 01/21/17 [Last Taken 03/12/18] Potassium Cl [Klor-Con 20 meq (*)] 20 meq PO DAILY 01/21/17 [Last Taken 03/12/18 ] Tamsulosin HCl [Flomax 0.4 MG (*)] 0.4 mg PO DAILY AT 10AM 01/21/17 [Last Taken 03/12/18] buPROPion SR [Wellbutrin 100mg SR (*)] 50 mg PO BID 01/21/17 [Last Taken ] Ascorbic Acid [Vitamin C 500 mg (*)] 500 mg PO BID 09/08/17 [Last Taken 03/12/18 ] Cholecalciferol Vit D3 [Vitamin D3 (*)] 1,000 units PO DAILY 09/08/17 [Last Taken 03/12/18] Herbals/Supplements -Info Only 1 ea PO DAILY 09/08/17 [Last Taken 03/12/18] Multivitamins [Multivitamin (*)] 1 each PO DAILY 09/08/17 [Last Taken 03/12/18] Tylenol 01/29/18 [Last Taken 03/12/18] - NPO status NPO Since - Liquids (Date): 03/12/18 NPO Since - Liquids (Time): 06:30 NPO Since - Solids (Date): 03/11/18 NPO Since - Solids (Time): 20:00 - Smoking Hx Smoking Status: Former smoker - Family Anes Hx Family Hx Anesthesia Complications: none ANE Labs/Vital Signs - Vital Signs Blood Pressure: 121/78 Heart Rate: 65 Respiratory Rate: 20 O2 Sat (%): 90 Height: 172.72 cm Weight: 74.389 kg ANE Physical Exam - Airway Neck exam: decreased ROM Mallampati Score: Class 2 - Pulmonary Pulmonary: no respiratory distress - Cardiovascular Cardiovascular: regular rate and rhythym - ASA Status ASA Status: III ANE Anesthesia Plan Anesthesia Plan: general endotracheal anesthesia
[2018-03-12] MEDS ORDERED: fentaNYL 100 MCG/2 ML INJ ONE ×3 (09:38→11:08)
[2018-03-12] MEDS ORDERED: PROPOFOL 200 MG/20 ML VIAL ONE (09:39)
[2018-03-12] MEDS ORDERED: LIDOCAINE 2% 2 ML INJ ONE (09:40)
[2018-03-12] MEDS ORDERED: ceFAZolin 2 GM/DEXTROSE 100 ML IV ONE (09:51)
[2018-03-12] MEDS ORDERED: CEFAZOLIN 2 GM/DEXTROSE/100 ML BAG IV ONE (09:55)
[2018-03-12] MEDS ORDERED: PROMETHAZINE HCL 25 MG/ML INJ IVP PRN (10:15)
[2018-03-12] MEDS ORDERED: NALOXONE HCL 0.4 MG/ML INJ IVP PRN (10:15)
[2018-03-12] MEDS ORDERED: ONDANSETRON 4 MG/2 ML VIAL IVP PRN (10:15)
[2018-03-12] MEDS ORDERED: ROCURONIUM 50 MG/5 ML VIAL ONE (10:50)
[2018-03-12] MEDS ORDERED: SUGAMMADEX SODIUM 200 MG/2 ML VIAL IVP ONE (10:50)
[2018-03-12] MEDS ORDERED: DEXAMETHASONE 4 MG/ML VIAL ONE (10:50)
[2018-03-12] MEDS ORDERED: ONDANSETRON 4 MG/2 ML VIAL ONE (10:50)
[2018-03-12] MEDS: fentaNYL 100 MCG/2 ML INJ IVP PRN ×2 (11:11→11:19)
--- NOTE | 2018-03-12 11:13 | POSTOPPROG ---
Post Op Note Date of Operation: 03/12/18 Surgeon: Javy Castellano (, FACS) Anesthesiologist: Gaby Anesthesia: GET(General Endotracheal) Pre-op Diagnosis: recurrent incisional hernia Findings: recurrent incisional hernia Inf/Abcess present in the surg proc area at time of surgery?: No
[2018-03-12] MEDS ORDERED: HYDROCODONE/APAP 5/325 TAB ONE (11:17)
[2018-03-12] MEDS: HYDROCODONE/APAP 5/325 TAB PO PRN ×3 (11:22→23:06)
[2018-03-12] MEDS ORDERED: diphenhydrAMINE 25 MG CAP PO PRN ×2 (12:59→13:05)
[2018-03-12] MEDS ORDERED: NAPROXEN SODIUM 220 MG TAB PO PRN (13:15)
[2018-03-12] MEDS: HYDROmorphONE/DILAUDID 1 MG/ML INJ IVP PRN ×3 (13:19→18:09)
--- NOTE | 2018-03-12 14:09 | GOP ---
DATE OF OPERATION: 03/12/2018 SURGEON: Javy Castellano MD, FACS ANESTHESIA: General endotracheal. ANESTHESIOLOGIST: Jeancarlos Griffin MD. PREOPERATIVE DIAGNOSIS: Recurrent incisional hernia. POSTOPERATIVE DIAGNOSIS: Recurrent incisional hernia. PROCEDURE PERFORMED: Repair of recurrent incisional hernia. FINDINGS: Mid abdominal incisional hernia without incarceration, repaired with a retro fascial Ventralex mesh (medium). ESTIMATED BLOOD LOSS: 10 cc. DESCRIPTION OF PROCEDURE: After informed consent was obtained, the patient was brought to the operating room and placed under general anesthesia. The abdomen was prepped and draped in the usual fashion. Before proceeding, a time-out identification of the patient was performed. The old incision was infiltrated with 0.25% Marcaine incised transversely and dissection carried out down to the hernia sac. This was dissected to the fascial plane circumferentially and the hernia sac incised and resected circumferentially at the level of the fascia. There were no intestinal adhesions to the anterior abdominal wall. A Ventralex mesh was brought onto the field (medium) and placed into the preperitoneal space. This was secured circumferentially to the fascial defect with interrupted 0 Nurolon sutures leaving a generous 2 cm cuff of mesh circumferential to the hernial defect. After this had been completed, the remaining fascial defect was closed over the mesh with interrupted 0 Nurolon sutures. Hemostasis appeared secure. Subcutaneous tissues were approximated with 3-0 Vicryl suture. Skin was closed with 4-0 Monocryl suture in a subcuticular fashion. Topical Dermabond and sterile dressings were applied. Needle, sponge, and instrument count were correct. COMPLICATIONS: None. /[id number]/MODL MTDD
[2018-03-12] MEDS: ATORVASTATIN CALCIUM 40 MG TAB PO SCH ×2 (15:10→21:01)
[2018-03-12] MEDS: LISINOPRIL 10 MG TAB PO SCH ×2 (15:11→18:07)
[2018-03-12] MEDS: DILTIAZEM CD 180 MG CAP PO SCH (16:41)
[2018-03-12] MEDS: TAMSULOSIN HCL 0.4 MG CAP PO SCH (16:41)
[2018-03-12] MEDS: POTASSIUM CL 20 MEQ TAB PO SCH (16:42)
[2018-03-12] MEDS: ceFAZolin 2 GM/DEXTROSE 100 ML IV SCH (18:07)
[2018-03-12] MEDS ORDERED: HYDROmorphone HCL 0.5 MG/0.5 ML SYR IVP PRN (18:30)
[2018-03-12] MEDS: DABIGATRAN ETEXILATE MESYL 150 MG CAP PO SCH (21:01)
[2018-03-13] MEDS: ceFAZolin 2 GM/DEXTROSE 100 ML IV SCH (02:01)
[2018-03-13] MEDS: HYDROCODONE/APAP 5/325 TAB PO PRN ×2 (02:49→07:09)
[2018-03-13 05:41] LABS: PLATELET COUNT 180 10^3/uL (150-400)
[2018-03-13] MEDS ORDERED: PANTOPRAZOLE SODIUM 40 MG TAB PO SCH (06:00)
[2018-03-13] MEDS: DILTIAZEM CD 180 MG CAP PO SCH (07:09)
--- NOTE | 2018-03-13 07:48 | PDDCSUM ---
Discharge Summary Discharge Summary: Dictated #[id number] S MD Nona, FACS
[2018-03-13 08:09] VITALS: BP 139/86
--- NOTE | 2018-03-13 08:12 | GDS ---
DISCHARGE DIAGNOSES: 1. Recurrent incisional hernia. 2. Paroxysmal atrial fibrillation. 3. Hypertension. 4. History of depression. 5. Benign prostatic hyperplasia. 6. Indwelling pacemaker. 7. History of chronic paroxysmal atrial fibrillation. 8. Obstructive sleep apnea, on continuous positive airway pressure. PROCEDURE PERFORMED: 03/12 repair of recurrent incisional hernia with mesh. HOSPITAL COURSE: For details of admission history and physical, please see dictated summary. Briefl y, the patient is an 82-year-old male with a recurrent incisional hernia and multiple medical problem s, admitted for elective repair. The patient underwent surgery under general anesthesia which he giovany erated well, and had repair of a mid abdominal ventral hernia with a retrofascial mesh and primary fa scial closure. Following surgery, the patient was admitted for observation. He was restarted on [place] the evening of surgery for his chronic paroxysmal atrial fibrillation. He had mild to moderate discomfort, was treated with oral hydrocodone and parenteral hydromorphone. His pain subsided. He w as advanced in his diet which he tolerated well. On the morning of discharge, he was in normal sinus rhythm. His lungs were clear. He was ambulatory. His operative site appeared uncomplicated and he was tolerating a regular diet. Vital signs at time of discharge, blood pressure was 122/75, pulse w as 65, respiratory rate 18, O2 sat was 89%, temperature was 36.6. The patient was instructed in acti vity restrictions, diet, and will resume MiraLAX which he takes on a daily basis at home. DISCHARGE MEDICATIONS: Include sertraline, Zoloft 150 mg p.o. q. day, omeprazole 20 mg p.o. q. day, lisinopril 10 mg p.o. q. day, lorazepam 1 mg at bedtime p.r.n., Lipitor 40 mg p.o. at bedtime, Napros yn 550 mg p.o. b.i.d., potassium chloride 20 mEq p.o. q. day, bupropion, Wellbutrin 50 mg p.o. b.i.d. , diltiazem Cardizem 360 mg p.o. q. day, Lasix 20 mg p.o. Thursday, Thursday, Thursday, Flomax 0.4 mg p. o. q. day, herbal supplements and multivitamins one p.o. q. day, vitamin D3 1000 units p.o. q. day, v itamin C 500 mg p.o. b.i.d., Pradaxa 150 mg p.o. b.i.d., and Tylenol 325 mg p.o. q.4 hours p.r.n. Th e patient will also take hydrocodone 5/325 one p.o. q.4 hours p.r.n. /[id number]/MODL
[2018-03-13] MEDS: POTASSIUM CL 20 MEQ TAB PO SCH (08:53)
[2018-03-13] MEDS: TAMSULOSIN HCL 0.4 MG CAP PO SCH (08:53)
[2018-03-13] MEDS: DABIGATRAN ETEXILATE MESYL 150 MG CAP PO SCH (08:53)
--- NOTE | 2018-03-13 10:18 | ASMTLACE ---
YRN Length of stay for Answers: 1 day current admission Acuity / Level of Answers: No Care: Did the patient have an inpatient admission? Comorbidities - select Answers: Congestive heart failure all that apply Coronary Artery Disease Other Notes: HTN; AFib # of Emergency department Answers: 0 visits in the last 6 months Social determinants Answers: Mental health diagnosis (anxiety, depression, pers onality disorders, etc.) Score: 9 Date Signed: 03/13/2018 10:17 AM Electronically Signed By:Jennie Gillespie RN
--- NOTE | 2018-03-13 10:23 | ASDISCHSUM ---
Discharge Information Plan Status:Home with No Needs Medically Cleared to Leave:03/13/2018 Discharge Date:03/13/2018 CM D/C Disposition:Home, Routine, Self-Care ADT D/C Disposition: Projected Discharge Date:03/13/2018 Transportation at D/C:Family Discharge Delay Reason: Follow-Up Date:03/13/2018 Discharge Slot: Final Diagnosis: Placement Information Patient Contact Information Contact Name:SHANNA Relationship: Address:[address] [place] [address] City:[place] Alternate Phone: State/Zip Code:[place] [address] Email: Financial Information Financial Class:Medicare Primary Plan Desc:MEDICARE OUTPATIENT Primary Plan Number:[id number] Secondary Plan Desc:[facility] Secondary Plan Number:[id number] Assessment Information LACE LACE Length of stay for Answers: 1 day current admission Acuity / Level of Answers: No Care: Did the patient have an inpatient admission? Comorbidities - select Answers: Congestive heart failure all that apply Coronary Artery Disease Other Notes: HTN; AFib # of Emergency department Answers: 0 visits in the last 6 months Social determinants Answers: Mental health diagnosis (anxiety, depression, pers onality disorders, etc.) Score: 9 Date Signed: 03/13/2018 10:17 AM Electronically Signed By:Jennie Gillespie RN Case Management Discharge Plan Note Case Management Discharge Discharge Order Complete? Answers: Yes Patient to Obtain Answers: via Family Medications Transportation Arranged Answers: Family/Friends Discharge Comments Notes: 03/13/2018 Case Management Note Met w/pt to discuss discharge needs. NAVNEET signed. Pt admitted for incisional hernia repair. Pt lives with his Diana [phone]. Pt daughter lives in [place], another daughter lives in [place] and 5 of 9 granchildren live nearby. There are no discharge needs identified d/t strong family support and independence in ADL's prior to admission. There are no therapy evals ordered. to transport home. Pt d/c independent. Date Signed: 03/13/2018 10:22 AM Electronically Signed By:Jennie Gillespie RN Intervention Information Intervention Type:*TOTH-Signed Date of Service:03/13/2018 10:18 AM Patient Type:Observation Staff Member:KSENIA Gillespie, Jennie Hours: Discipline: Severity: Comment:
== END 2018-03-13 11:37 | disposition home or self-care (01) ==
LOC: F3E 03-12 08:01
PROVIDERS: ADMIT Surgery; ATTEND Surgery
PROC: 0WUF0JZ Supplement Abdominal Wall with Synthetic Substitute, Open Approach (ICD-10-PCS; principal; 2018-03-12 09:30)
DX: K43.2 Incisional hernia without obstruction or gangrene (principal); I48.0 Paroxysmal atrial fibrillation; I10 Essential (primary) hypertension; N40.0 Benign prostatic hyperplasia without lower urinary tract symptoms; Z95.0 Presence of cardiac pacemaker; F32.9 Major depressive disorder, single episode, unspecified; G47.33 Obstructive sleep apnea (adult) (pediatric); I27.29 Other secondary pulmonary hypertension
CPT/HCPCS: 49565; 49568; 90686; C1781; G0008; J0171; J0690; J1100; J1170; J2250; J2405; J2704; J3010

== ENCOUNTER → 2018-08-19 | Outpatient (CLI) | payer OTHER | LOC: FIMAGING 13:01 | PROVIDERS: ATTEND Internal Medicine Pulmonary Disease | DX: R06.09 Other forms of dyspnea (principal); R91.8 Other nonspecific abnormal finding of lung field; Z99.89 Dependence on other enabling machines and devices; K44.9 Diaphragmatic hernia without obstruction or gangrene; Z95.0 Presence of cardiac pacemaker ==